=== PATIENT | male | born 1980 | race African-American/Black ===

== ENCOUNTER 2018-11-22 17:09 | Emergency (ER) | payer BC ==
[2018-11-22 17:39] VITALS: BP 114/76; PULSE 72; TEMP 98.4; BMI 29.5
--- NOTE | 2018-11-22 17:40 | PDOC ---
Rapid Medical Evaluation Time Seen by Provider: 11/22/18 17:33 Medical Evaluation: 11/22/18 17:33 Pt c/o: eyes starting burning while sitting at desk then felt mild sob with chest tightness. Pt states as soon as he went into hallway s/s subsided, asymptomatic presently Pt on brief exam: vss, no acute findings Pt ordered for: ekg, Pt to proceed to the ED Discharge Disposition - Diagnosis Dizziness - Referrals - Patient Instructions - Post Discharge Activity
--- NOTE | 2018-11-22 18:51 | PDOC ---
History of Present Illness - General Chief Complaint: Chest Pain Stated Complaint: CHEST PAIN Time Seen by Provider: 11/22/18 17:33 History Source: Patient Exam Limitations: Clinical Condition - History of Present Illness Initial Comments: 11/22/18 18:47 Patient with history of hypothyroidism on Synthroid present with complaint of sudden onset of chest tightness which lasted for 10 minutes while watching TV and result after stepping out of the house. Patient reported watching TV and started having sudden onset of midsternal chest tightness and eye irritation which resolved after going outside to good air. Denies chest pain now, shortness of breath, dizziness, nausea, vomiting, numbness or tingling sensation. Reported no symptoms now Timing/Duration: resolved prior to arrival Past History - Past Medical History Allergies/Adverse Reactions: Allergies Allergy/AdvReac Type Severity Reaction Status Date / Time No Known Allergies Allergy Verified 11/22/18 17:33 COPD: No - Immunization History Immunization Up to Date: Yes - Suicide/Smoking/Psychosocial Hx Smoking History: Never smoked Information on smoking cessation initiated: No Hx Alcohol Use: No Drug/Substance Use Hx: No Review of Systems - Review of Systems Able to Perform ROS?: Yes Is the patient limited Irish proficient: No Constitutional: No: Malaise, Night Sweats, Weakness HEENTM: No: Symptoms Reported, See HPI, Eye Pain, Blurred Vision, Tearing, Recent change in vision, Double Vision, Cataracts, Ear Pain, Ocular Prothesis, Ear Discharge, Nose Pain, Nose Congestion, Tinnitus, Nose Bleeding, Hearing Loss , Throat Pain, Throat Swelling, Mouth Pain, Dental Problems, Difficulty Swallowing, Mouth Swelling, Other Respiratory: No: Symptoms reported, See HPI, Cough, Orthopnea, Shortness of Breath, SOB with Exertion, SOB at Rest, Stridor, Wheezing, Productive cough, Hemoptysis, Other Cardiac (ROS): Yes: Symptoms Reported, See HPI, Chest Tightness (resolved). No : Chest Pain, Edema, Irregular Heart Rate, Lightheadedness, Palpitations, Syncope, Other ABD/GI: No: Nausea, Vomiting Neurological: No: Symptoms reported, Headache, Numbness, Paresthesia, Dizziness All Other Systems: Reviewed and Negative *Physical Exam - Vital Signs Last Vital Signs Temp Pulse Resp BP Pulse Ox 98.4 F 72 16 114/76 98 11/22/18 17:34 11/22/18 17:34 11/22/18 17:34 11/22/18 17:34 11/22/18 17:34 - Physical Exam Comments: 11/22/18 18:50 GENERAL: Well developed, well nourished. Awake and alert. No acute distress. HEENT: Normocephalic, atraumatic. PERRLA, EOMI. No conjunctival pallor. Sclera are non-icteric. Moist mucous membranes. Oropharynx is clear. NECK: Supple. Full ROM. CARDIOVASCULAR: Regular rate and rhythm. No murmurs, rubs, or gallops. Distal pulses are 2+ and symmetric. PULMONARY: No evidence of respiratory distress. Lungs clear to auscultation bilaterally. No wheezing, rales or rhonchi. ABDOMINAL: Soft. Non-tender. Non-distended. No rebound or guarding. No organomegaly. Normoactive bowel sounds. MUSCULOSKELETAL Normal range of motion at all joints. EXTREMITIES: No cyanosis. No clubbing. No edema. No calf tenderness. SKIN: Warm and dry. Normal capillary refill. No rashes. NEUROLOGICAL: Alert, awake, appropriate. Gait is normal without ataxia. PSYCHIATRIC: Cooperative. Good eye contact. Appropriate mood General Appearance: Yes: Nourished, Appropriately Dressed. No: Apparent Distress ED Treatment Course - LABORATORY CBC & Chemistry Diagram: 11/22/18 18:45 11/22/18 18:45 Medical Decision Making - Medical Decision Making 11/22/18 18:48 Patient with history of hypothyroidism on Synthroid present with complaint of sudden onset of chest tightness which lasted for 10 minutes while watching TV and result after stepping out of the house. Patient reported watching TV and started having sudden onset of midsternal chest tightness and eye irritation which resolved after going outside to good air. Denies chest pain now, shortness of breath, dizziness, nausea, vomiting, numbness or tingling sensation. Reported no symptoms now Clinical exam unremarkable with normal cardio and lung exam. Patient no acute distress. Symptoms likely chest strain versus less likely cardiogenic pain. CBC, CMP and cardiac profile labs ordered. EKG shows normal sinus rhythm. TSH lab ordered . treat based on lab results 11/22/18 20:23 troponins neg. CBC wnl. elevated LFTs which pt admit to having been drinking lot of alcohol lately. Patient counceled on decreasing alcohol intake and pt report he will decrease alcohol intake. Referral for GI given to f/u with elevated LFTS. pt stable for discharge *DC/Admit/Observation/Transfer Diagnosis at time of Disposition: Bronchospasm, acute, Elevated liver enzymes - Discharge Dispostion Disposition: HOME Condition at time of disposition: Improved Decision to Admit order: No - Referrals Referrals: Akshat Moore MD [Staff Physician] - - Patient Instructions Printed Discharge Instructions: Preventing Liver Disease, DI for Atypical Chest Pain Additional Instructions: Your labs is normal. Your liver enzymes is elevated this could be caused by the increased alcohol intake. reduce alcohol intake as discussed. Follow-up with referred GI for follow-up of elevated liver enzymes - Post Discharge Activity
[2018-11-22 19:57] LABS: BASO % 0.3 % (0-2.0); EOS % 0.9 % (0-4.5); HEMATOCRIT 42.5 % (35.4-49); HEMOGLOBIN 14.6 GM/dL (11.7-16.9); LYMPH % 38.1 % (8-40); MCH 30.1 pg (25.7-33.7); MCHC 34.4 g/dl (32.0-35.9); MEAN CELL VOLUME 87.5 fl (80-96); MEAN PLT VOLUME 8.4 fl (7.5-11.1); MONO % 8.1 % (3.8-10.2); NEUT % 52.6 % (42.8-82.8); PLATELET COUNT 241 K/MM3 (134-434); RBC 4.86 M/mm3 (4.00-5.60); RDW 13.1 % (11.9-15.9)
[2018-11-22 20:03] LABS: ALBUMIN 3.7 g/dl (3.4-5.0); ALK PHOS 83 U/L (45-117); ANION GAP 5 MMOL/L (8-16); BILIRUBIN,TOTAL 0.5 mg/dL (0.2-1); CALCIUM 8.9 mg/dL (8.5-10.1); CHLORIDE 106 mmol/L (98-107); CO2 28 mmol/L (21-32); CREATININE 1.4 mg/dL (0.55-1.3); GLUCOSE,RANDOM 84 mg/dL (74-106); POTASSIUM 4.9 mmol/L (3.5-5.1); SGOT/AST 56 U/L (15-37); SGPT/ALT 81 U/L (13-61); SODIUM 140 mmol/L (136-145); TOT PROT 7.7 g/dl (6.4-8.2)
--- NOTE | 2018-11-23 11:46 | EKG ---
Test Reason : Blood Pressure : / mmHG Vent. Rate : 070 BPM Atrial Rate : 070 BPM P-R Int : 190 ms QRS Dur : 096 ms QT Int : 378 ms P-R-T Axes : 041 022 021 degrees QTc Int : 408 ms NORMAL SINUS RHYTHM INCOMPLETE RIGHT BUNDLE BRANCH BLOCK BORDERLINE ECG NO PREVIOUS ECGS AVAILABLE Confirmed by RIAN MCMILLAN, PATIENCE ([id number]) on 11/23/2018 11:45:46 AM Referred By: Confirmed By:PATIENCE MODI MD
== END 2018-11-22 20:33 | disposition home or self-care (01) ==
LOC: JER 17:09
DX: R07.89 Other chest pain (principal); J98.01 Acute bronchospasm; R94.5 Abnormal results of liver function studies; E03.9 Hypothyroidism, unspecified
CPT/HCPCS: 36415; 80053; 82550; 82553; 84443; 84484; 85025; 93005; 93010; 99281-25